=== PATIENT | male | born 1995 | race Caucasian/White ===

== ENCOUNTER 2018-04-01 11:03 | Emergency (ER) | payer OTHER ==
[~2018-04-01] VITALS: Ht 167.6 cm; Wt 56.7 kg
[2018-04-01 11:15] VITALS: BP 120/79
--- NOTE | 2018-04-01 11:19 | NUR ---
Patient ambulated to bed 9 with family. RN evaluating patient at bedside.
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
[2018-04-01] MEDS ORDERED: IBUPROFEN 600 MG TAB PO ONE (12:15)
[2018-04-01] MEDS ORDERED: HYDROcodone/APAP 5/325 MG 1 TAB TAB PO ONE (12:15)
[2018-04-01 13:24] VITALS: BP 130/69
--- NOTE | 2018-04-01 13:28 | NUR ---
Patient discharged with v/s stable. Written and verbal after care instructions given and explained. Patient alert, oriented and verbalized understanding of instructions. Ambulatory with steady gait. All questions addressed prior to discharge. ID band removed. Patient advised to follow up with PMD. Rx of TORADOL given. Patient educated on indication of medication including possible reaction and side effects. Opportunity to ask questions provided and answered.
== END 2018-04-01 13:28 | disposition home or self-care (01) ==
LOC: MED 11:03
DX: S16.1XXA Strain of muscle, fascia and tendon at neck level, initial encounter (principal); S29.012A Strain of muscle and tendon of back wall of thorax, initial encounter; V49.49XA Driver injured in collision with other motor vehicles in traffic accident, initial encounter; Y93.89 Activity, other specified; Y92.488 Other paved roadways as the place of occurrence of the external cause; Y99.8 Other external cause status
CPT/HCPCS: 71046; 72040; 72100; 99284

== ENCOUNTER 2018-10-19 10:22 | Emergency (ER) | payer OTHER ==
[~2018-10-19] VITALS: Ht 177.8 cm; Wt 57.3 kg
[2018-10-19 10:27] VITALS: BP 129/75
[2018-10-19 12:21] VITALS: BP 129/75
== END 2018-10-19 12:12 | disposition home or self-care (01) ==
LOC: MED 10:22
DX: S13.4XXA Sprain of ligaments of cervical spine, initial encounter (principal); S09.90XA Unspecified injury of head, initial encounter; V49.9XXA Car occupant (driver) (passenger) injured in unspecified traffic accident, initial encounter; Y93.89 Activity, other specified; Y92.89 Other specified places as the place of occurrence of the external cause; Y99.8 Other external cause status
CPT/HCPCS: 70450; 72125; 99284

== ENCOUNTER 2022-05-19 10:44 | Emergency (ER) | payer OTHER ==
[~2022-05-19] VITALS: Ht 170.2 cm; Wt 56.9 kg
[2022-05-19 11:02] VITALS: BP 124/80
[2022-05-19] MEDS ORDERED: KETOROLAC 15 MG/ML VIAL IM ONE (12:25)
--- NOTE | 2022-05-19 13:00 | NUR ---
NO NURSING INTERVENTIONS NEEDED. SEEN & TREATED BY GUILHERME THURMAN.
[2022-05-19] MEDS ORDERED: CYCL-711 PO (13:20)
[2022-05-19] MEDS ORDERED: IBUP-2213 PO (13:20)
[2022-05-19 14:15] VITALS: BP 122/77
--- NOTE | 2022-05-19 14:15 | NUR ---
Patient discharged with v/s stable. Written and verbal after care instructions given and explained. Patient alert, oriented and verbalized understanding of instructions. Ambulatory with steady gait. All questions addressed prior to discharge. ID band removed. Patient advised to follow up with PMD. Rx of FLEXERIL & IBUPROFEN given. Patient educated on indication of medication including possible reaction and side effects. Opportunity to ask questions provided and answered.
== END 2022-05-19 14:15 | disposition home or self-care (01) ==
LOC: MED 10:44
DX: S46.811A Strain of other muscles, fascia and tendons at shoulder and upper arm level, right arm, initial encounter (principal); S29.019A Strain of muscle and tendon of unspecified wall of thorax, initial encounter; M25.562 Pain in left knee; Z79.899 Other long term (current) drug therapy; V89.2XXA Person injured in unspecified motor-vehicle accident, traffic, initial encounter; Y93.89 Activity, other specified; Y92.89 Other specified places as the place of occurrence of the external cause; Y99.8 Other external cause status
CPT/HCPCS: 71101; 73030; 73562; 99284; J1885